=== PATIENT | female | born 1935 | race Caucasian/White ===

== ENCOUNTER 2017-01-30 10:24 | Inpatient (IN) ==
[2017-01-30] MEDS ORDERED: CARDIZEM IV ONE (10:27)
[2017-01-30] MEDS ORDERED: ASPIRIN PO STA (10:27)
[2017-01-30 10:48] LABS: MANUAL DIFF NEEDED? NO
[2017-01-30] MEDS ORDERED: NS 1,000 ML ONE (10:50)
--- NOTE | 2017-01-30 10:50 | Diag Imaging Result Doc PS360 ---
EXAM: CHEST-PORTABLE HISTORY: CP TECHNIQUE: AP upright portable at 1035 COMMENT: The appearance of the chest has not changed appreciably since the previous study of 11/03/2015. IMPRESSION: Stable chest. Electronically signed by Yony Beckham 01/30/2017 10:48 AM
[2017-01-30 10:55] LABS: BASO% 0.2 % (0.0-0.8); EOS# 0.12 X1000 (0.0-0.7); EOS% 1.1 % (0.0-10.0); HEMATOCRIT 36.1 % (37.0-47.0); HEMOGLOBIN 11.3 g/dL (12.0-16.0); IMM GRAN# 0.05 X1000 (0.0-0.04); IMM GRAN% 0.4 % (0.0-0.5); LYMPH# 1.01 X1000 (1.2-3.4); LYMPH% 8.9 % (20.5-51.1); MCH 28.9 PG (27-31); MCHC 31.3 g/dL (33-37); MCV 92.3 FL (81-99); MONO# 1.09 X1000 (0.11-0.59); MONO% 9.6 % (1.7-9.3); MPV 9.5 FL (7.4-10.4); NEUT% 79.8 % (42.2-75.2); PLT 244 X1000 (130-400); RBC 3.91 XMIL (4.2-5.4)
[2017-01-30] MEDS ORDERED: NS 500 ML IV ONE ×2 (11:01→11:37)
[2017-01-30 11:02] LABS: INR 1.01; PROTIME 10.6 Seconds (9.2-11.7); PTT 28.5 Seconds (22.0-36.0)
--- NOTE | 2017-01-30 11:22 | PROVIDER DOCUMENTATION ---
This chart was entered by Cristin Burnette Scribe, acting as scribe for Georgina Hutchinson MD. HPI-Chest Pain - General Chief Complaint: Chest Pain Stated Complaint: CHEST PAIN Time Seen by Provider: 01/30/17 10:25 Source: patient, EMS Allergies/Adverse Reactions: Patient Allergies Allergy/AdvReac Type Severity Reaction Status Date / Time morphine Allergy Intermediate HALLUCINATI Verified 04/29/15 21:46 ONS Home Medications: Home Medication List Medication Instructions Recorded Confirmed Last Taken Type Citalopram [Celexa] 20 mg PO QAM 09/27/12 10/27/15 10/27/15 History Pantoprazole [Protonix] 40 mg PO DAILY@0700 #0 tablet 08/31/14 10/27/15 Rx Aspirin 325 mg PO QAM #30 tablet 01/14/15 10/27/15 10/27/15 Rx Levothyroxine [Synthroid] 100 microgm PO DAILY #0 tablet 01/14/15 10/27/1510/27 Rx Clopidogrel [Plavix] 75 mg PO DAILY #30 tablet 02/22/15 10/27/15 10/27/15 Rx Lorazepam [Ativan] 1 mg PO QHS 04/29/15 10/27/15 10/26/15 History Hydrocodone/APAP 7.5 mg/325 mg 7.5 mg PO Q6H 10/27/15 10/27/15 10/26/15 12:00 History [[place]-7.5] Metoclopramide [Reglan] 10 mg PO BID #60 tablet 11/03/15 Unknown Rx - History of Present Illness-CP Nature of Presenting Problem: 81 year old female presents to the ER via EMS after falling in her home. Pt states her heart has been racing for 5 days with no history of cardiac issues. Pt states she started having chest pain as she was walking back to wheelchair and feel. 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 Onset/Duration: 5 days ago Timing: still present Associated Symptoms: reports: fatigue. denies: abdominal pain, back pain, nausea, shortness of breath, syncope, vomiting Aspirin Treatment Today: provided by ED Similar Symptoms Previously?: No Recently Seen Here or By Another Healthcare Provider: No Review of Systems - Adult - REVIEW OF SYSTEMS - ADULT Constitutional: denies: chills, fever Eyes: reports: no symptoms reported Ears, Nose, Mouth & Throat: reports: no symptoms reported Cardiovascular: reports: chest pain. denies: edema Respiratory: reports: no symptoms reported Gastrointestinal: reports: no symptoms reported Genitourinary: reports: no symptoms reported Musculoskeletal: reports: muscle weakness (right sided weakness due to stroke) Integumentary: reports: no symptoms reported Neurological: reports: no symptoms reported Psychiatric: reports: no symptoms reported Endocrine: reports: no symptoms reported Hematologic/Lymphatic: reports: no symptoms reported Allergic/Immunologic: reports: no symptoms reported All Other Systems: Reviewed and Negative Past History - Adult - PAST MEDICAL HISTORY-ADULT Review of Records: reports: Nursing Assessment Review, Medications Reviewed Cardiovascular: reports: HTN Gastrointestinal: reports: GERD, obstruction Endocrine/Immune: reports: thyroid disorder - PRIOR SURGERIES/PROCEDURES Surgical/Procedure History: reports: cholecystectomy, hysterectomy, hernia repair, joint replacement - PRIOR HOSPITALIZATIONS Prior Hospitalizations: reports: for other non-related - IMMUNIZATION STATUS Childhood Immunizations: See Nurse Assessment Flu Vaccine: See Nurse Assessment - FAMILY HISTORY Family History: reviewed, not pertinent Physical Exam-General - CONSTITUTIONAL General Appearance: alert, no apparent distress - EYES Eyes: PERRL/EOMI, pink conjunctivae - HEAD, EARS, NOSE, MOUTH & THROAT HENMT: normocephalic/atraumatic, moist mucous membranes - NECK Neck: full range of motion, normal inspection - RESPIRATORY Respiratory: lungs clear, normal breath sounds - CARDIOVASCULAR Cardiovascular: tachycardia - MUSCULOSKELETAL Back Exam: no CVA tenderness, no vertebral tenderness Extremity: normal range of motion, normal inspection - SKIN Integumentary: normal color, warm/dry - NEUROLOGIC Neurologic: grossly normal, no motor/sensory deficits - PSYCHIATRIC Psych/Mental Status: normal mood/affect, normal thought content, normal thought process, oriented x 3 Progress - PLAN OF CARE/RESULTS Progress/Plan/Lab Results: Vital Signs - 8 hr 01/30/17 10:20 01/30/17 10:47 01/30/17 10:50 Temperature 98.2 F Pulse Rate 148 H 145 H 116 H Respiratory Rate 24 21 20 Blood Pressure 151/129 134/94 79/66 O2 Sat by Pulse Oximetry 94 L 96 96 01/30/17 10:55 01/30/17 11:03 01/30/17 11:30 Temperature Pulse Rate 115 H 109 H 120 H Respiratory Rate 24 21 21 Blood Pressure 101/60 115/77 104/83 O2 Sat by Pulse Oximetry 95 94 L 95 Laboratory Results - last 24 hr 01/30/17 01/30/17 01/30/17 10:39 10:39 10:39 WBC 11.37 H RBC 3.91 L Hgb 11.3 L Hct 36.1 L MCV 92.3 MCH 28.9 MCHC 31.3 L RDW Std Deviation 13.8 Plt Count 244 MPV 9.5 Immature Gran % (Auto) 0.4 Neut % (Auto) 79.8 H Lymph % (Auto) 8.9 L [place] % (Auto) 9.6 H Eos % (Auto) 1.1 Baso % (Auto) 0.2 Immature Gran # (Auto) 0.05 H Neut # (Auto) 9.08 H Lymph # (Auto) 1.01 L [place] # (Auto) 1.09 H Eos # (Auto) 0.12 Baso # (Auto) 0.02 PT INR PTT (Actin FS) D-Dimer 1.83 H Sodium 141 Potassium 4.2 Chloride 103 Carbon Dioxide 23 L Anion Gap 15 BUN 28 H Creatinine 1.1 H Estimated GFR/1.73 m2 48 BUN/Creatinine Ratio 25 Glucose 125 H Calculated Osmolality 288 Calcium 9.0 Magnesium 1.4 L Total Bilirubin 0.53 AST 13 ALT 6 L Alkaline Phosphatase 59 Creatine Kinase 33 Troponin T Fns-[id number]-[id number] Pept Total Protein 6.5 Albumin 3.5 Globulin 3.0 Albumin/Globulin Ratio 1.2 01/30/17 01/30/17 01/30/17 10:39 10:39 10:39 WBC RBC Hgb Hct MCV MCH MCHC RDW Std Deviation Plt Count MPV Immature Gran % (Auto) Neut % (Auto) Lymph % (Auto) [place] % (Auto) Eos % (Auto) Baso % (Auto) Immature Gran # (Auto) Neut # (Auto) Lymph # (Auto) [place] # (Auto) Eos # (Auto) Baso # (Auto) PT 10.6 INR 1.01 PTT (Actin FS) 28.5 D-Dimer Sodium Potassium Chloride Carbon Dioxide Anion Gap BUN Creatinine Estimated GFR/1.73 m2 BUN/Creatinine Ratio Glucose Calculated Osmolality Calcium Magnesium Total Bilirubin AST ALT Alkaline Phosphatase Creatine Kinase Troponin T < 0.010 Dpm-R-Bressmrpiwb Pept 2255 H Total Protein Albumin Globulin Albumin/Globulin Ratio Orders Category Date Time Status Cardiac Monitoring DIRECTED Care 01/30/17 10:27 Active Saline Loc NOW Care 01/30/17 10:27 Active CHEST-PORTABLE [RAD] Stat Exams 01/30/17 10:27 Completed HEAD/C-SPINE W/O CONTRAST [CT] Stat Exams 01/30/17 10:53 Completed CBC WITH ELECTRONIC DIFF [HEME] Stat Lab 01/30/17 10:39 Completed CK PROFILE [SP CHEM] Stat Lab 01/30/17 10:39 Completed COMPREHENSIVE METABOLIC PANEL [CHEM] Stat Lab 01/30/17 10:39 Completed D-DIMER [CHEM] Stat Lab 01/30/17 10:39 Completed MAGNESIUM [CHEM] Stat Lab 01/30/17 10:39 Completed PRO B-NATRIURETIC PEPTIDE Stat Lab 01/30/17 10:39 Completed PROTIME WITH INR [COAG] Stat Lab 01/30/17 10:39 Completed PTT [COAG] Stat Lab 01/30/17 10:39 Completed TROPONIN T Stat Lab 01/30/17 10:39 Completed UA NIMS W/REFLEX CULT [URINALYSIS] Stat Lab 01/30/17 10:43 Uncollected 0.9% Sodium Chloride Inj [Ns] 500 ml Med 01/30/17 10:50 Discontinued .ROUTE As Directed 0.9% Sodium Chloride Inj [Ns] 500 ml Med 01/30/17 11:37 Active IV 250 mls/hr 0.9% Sodium Chloride Inj [Ns] 500 ml Med 01/30/17 11:01 Discontinued IV 999 mls/hr Aspirin Med 01/30/17 10:27 Discontinued 325 mg PO STAT STA Diltiazem 100 mg/Ns [Cardizem 100 mg/Ns] Med 01/30/17 11:37 Active 100 mg in 100 ml IV Per Protocol Diltiazem [Cardizem] Med 01/30/17 10:27 Discontinued 20 mg IV NOW ONE Hydrocodone/APAP 7.5 mg/325 mg [[place]-7.5] Med 01/30/17 12:10 Discontinued 1 each .ROUTE .STK-MED ONE Hydrocodone/APAP 7.5 mg/325 mg [[place]-7.5] Med 01/30/17 12:13 Discontinued 1 each PO NOW ONE EKG [EKG] Stat Ther 01/30/17 10:27 Ordered EKG [EKG] Stat Ther 01/30/17 11:20 Ordered Result Diagrams: 01/30/17 10:39 01/30/17 10:39 - EKG 1 Time of EKG reading by physician:: 10:24 EKG Read and Signed by:: Georgina Hutchinson EKG Interpretation (*Must complete 3 of following elements*): Abnormal Rate: 148 Rhythm: supraventricular tachycardia ST Wave: depressed - CONSULTS/PCP/HOSPITALIST Notification Time Discussed: 12:23 Reason/Comments: Admit to Dr. Jeong Consult Disposition: Will see in ED, Admit Departure - Departure Time of Disposition Decision: 12:23 DIAGNOSIS: Atrial fibrillation with RVR, Chest pain Disposition: ADMITTED INPATIENT 09 Certified Medical Emergency: Emergent Condition: Stable Referrals and Follow-Ups: Jozef Simon MD [Primary Care Provider] - - Critical Care Note This patient required my direct & personal management of CC.: No This chart was documented by the indicated scribe, (Cristin Burnette, Scribe) and accurately reflects the services I performed and decisions made by me, Georgina Hutchinson MD, as attested by the provider's signature.
[2017-01-30 11:35] LABS: ALBUMIN 3.5 g/dL (3.5-5.0); MAGNESIUM 1.4 mg/dL (1.5-2.7); POTASSIUM 4.2 mmol/L (3.5-5.1); TOTAL BILIRUBIN 0.53 mg/dL (0.20-1.00); TOTAL PROTEIN 6.5 g/dL (6.3-8.3)
[2017-01-30] MEDS ORDERED: CARDIZEM 100 MG/NS 100 MG/100 ML IVPB IV SCH (11:38)
--- NOTE | 2017-01-30 11:39 | Diag Imaging Result Doc PS360 ---
EXAM: HEAD/C-SPINE W/O CONTRAST HISTORY: Fall TECHNIQUE: CT of the head without contrast; CT of the cervical spine without contrast COMMENT: There is patchy lucency throughout the white matter both hemispheres. There is a small lacunae in the right caudate nucleus and another at the area of the genuine of the internal capsule on the left. No evidence of mass effect bleed or abnormal extra-axial fluid collection is present. Compared to the previous study of 01/11/2015 there has been no significant change. The visualized paranasal sinuses are clear. There are no acute bony abnormalities. CT of the cervical spine: There are extensive vascular calcifications particularly in the right carotid bulb and the left vertebral artery. The facets are aligned. There is no evidence of fracture or subluxation. There is disc space narrowing and osteophyte formation at C4-5 and five six. IMPRESSION: Chronic ischemic changes in the brain without definite evidence of acute disease. Degenerative disc disease. No evidence of acute fracture or subluxation in the cervical spine. Electronically signed by Yony Beckham 01/30/2017 11:36 AM
[2017-01-30] MEDS: CARDIZEM 100 MG/NS 100 MG/100 ML IVPB IV SCH ×2 (11:55→21:53)
[2017-01-30] MEDS ORDERED: NORCO-7.5 ONE (12:10)
[2017-01-30] MEDS ORDERED: NORCO-7.5 PO ONE (12:13)
--- NOTE | 2017-01-30 12:22 | ED EKG INTERP ---
This chart was entered by Cristin Burnette Scribe, acting as scribe for Georgina Hutchinson MD. EKG Interpretation - EKG Time of EKG reading by physician:: 12:05 EKG Read and Signed by:: Georgina Hutchinson EKG Interpretation (*Must complete 3 of following elements*): Abnormal Rate: 116 Rhythm: atrial fibrillation with rapid ventricular response Comments: ST & T wave abnormality, consider anterior ischemia, Abnormal ECG This chart was documented by the indicated scribe, (Cristin Burnette Scribe) and accurately reflects the services I performed and decisions made by me, Georgina Hutchinson MD, as attested by the provider's signature.
[2017-01-30] MEDS ORDERED: MAGNESIUM SULFATE 2 GM/S.W.I. 2 GM/50 ML IVPB IV ONE (15:11)
[2017-01-30] MEDS ORDERED: LANOXIN IV ONE (15:11)
[2017-01-30] MEDS ORDERED: TYLENOL PO PRN (15:11)
[2017-01-30] MEDS ORDERED: ZOFRAN IV PRN (15:11)
[2017-01-30] MEDS: NORCO-7.5 PO SCH ×2 (15:51→21:52)
--- NOTE | 2017-01-30 20:29 | HISTORY AND PHYSICAL ---
HISTORY OF PRESENT ILLNESS: Ms. Stefanie Haskins is an 81-year-old lady who is followed as an outpatient by Dr. Jozef Simon. 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 She presented to the ER complaining of palpitations. She reported that her heart has been racing and skipping for 5 days. On arrival to the ER, she was noted to be in atrial fibrillation with RVR, with her heart rate in the 150s and 160s. She was initially given a bolus of Cardizem, and was later placed on a Cardizem drip. She has no previous history of atrial fibrillation. Upon further questioning, she has been with complaint of chest tightness and pressure, with radiation of pain to her neck and arm. Her episodes of chest pain have occurred both with exertion and at rest. She also has been with complaint of increasing peripheral edema and increasing shortness of breath with activities of daily living that resolved with rest. She sleeps on 2 pillows, but does not wake up at night short of breath. PAST MEDICAL HISTORY: Degenerative arthritis, depression, post ablative hypothyroidism, COPD, infrarenal aortic aneurysm. PAST SURGICAL HISTORY: Bilateral hip replacement, bilateral knee replacement, hysterectomy, cholecystectomy, exploratory laparotomy for lysis of adhesions following a small bowel obstruction. ALLERGIES: No known drug allergies. FAMILY HISTORY: Noncontributory. SOCIAL HISTORY: She is a former smoker. She does not consume alcoholic beverages. REVIEW OF SYSTEMS: Constitutional: She denies any recent weight gain or weight loss. HEENT: She wears glasses. Cardiovascular: See HPI. Pulmonary: See HPI. Gastrointestinal: No reflux, dysphagia, melena, hematochezia, change in bowel habits, or rectal bleeding. Endocrine: No polyuria, no polydipsia. No cold or heat intolerance. Skin: No easy bruisability. Genitourinary: No leakage of urine with coughing or laughing. Neurologic: No migraines or seizures. Psychiatric: History of depression. PHYSICAL EXAMINATION: GENERAL: This is a well-developed, well-nourished, 81-year-old lady in no apparent distress. VITAL SIGNS: Pulse 115 and irregular, respiratory rate 20, BP 100/62. O2 saturation 98% on 2 L of O2. HEENT: Fundi with sharp discs and vessels. Pupils equal, round, reactive to light. Extraocular eye movements intact. TMs without bullae. NECK: Supple. No masses, JVD, or bruits. CARDIOVASCULAR: Irregularly irregular. LUNGS: Faint crackles in the bases bilaterally. ABDOMEN: Soft, nontender, with active bowel sounds. BREASTS/GYNECOLOGIC/RECTAL: Deferred. EXTREMITIES: Trace pitting edema. NEUROLOGIC: Nonfocal. LABORATORY STUDIES: Various laboratory studies were obtained. A CBC demonstrated a white count of 11.3, hemoglobin 11.3, hematocrit 36.1, and a platelet count of 244,000. Her PT was 10.6, with an INR of 1. Her D-dimer was 1.83. Electrolytes demonstrated the following: Sodium 141, potassium 4.2, BUN 28, creatinine 1.1, glucose 125, magnesium 1.4. Her proBNP was 22.55. ASSESSMENT AND PLAN: 1. Unstable angina. She has no known previous history of ischemic heart disease. I will continue aspirin 81 mg daily, Lovenox 1 mg/kg subcutaneously b.i.d.,, and will rule her out for myocardial ischemia by serial enzymes. 2. New-onset atrial fibrillation with rapid ventricular rate. I will admit the patient to the intensive care unit, where I will begin a Cardizem drip and titrate to heart rate less than 100. We will arrange for a 2D echocardiogram with color Doppler and spectral flow Doppler to rule out valvular abnormalities. I will check serial cardiac enzymes to rule out an ischemic event which prompted the atrial fibrillation. She is also on thyroid medicines, and we will check a TSH and free T4 to make sure that she is not thyrotoxic. 3. Acute congestive heart failure. I am going to place her on a salt and fluid-restricted diet. We will diurese her with IV Lasix. We will follow strict I's and O's. I will recheck a portable chest x-ray in the morning. 4. Post ablative hypothyroidism. I will check a TSH and free T4, and adjust the dosage of levothyroxine as needed. 5. Hypomagnesemia. I will give her magnesium 4 g IV over 2 hours. 6. Elevated D-dimer. She was tachypneic and tachycardic. I will check a CT pulmonary angiogram. Because of her clinical presentation and comorbid conditions, I believe that admission to the hospital is both reasonable and necessary. Attempting to treat her as an outpatient increases the likelihood of an adverse outcome. I believe that she will be in the hospital for at least 2 midnights, and I will therefore place her in inpatient status. cc: MD Jozef Wilson MD
[2017-01-30] MEDS: LOVENOX SUBQ SCH (21:51)
[2017-01-30] MEDS: DESYREL PO PRN (21:52)
[2017-01-30] MEDS: REGLAN PO SCH (21:52)
[2017-01-30] MEDS: ATIVAN PO SCH (21:52)
--- NOTE | 2017-01-31 06:01 | EKG Report ---
Test Performed on : 01/30/2017 10:24:30 AM Test Reason : Chest Pain Blood Pressure : / mmHG Vent. Rate : 148 BPM Atrial Rate : 153 BPM P-R Int : 000 ms QRS Dur : 072 ms QT Int : 282 ms P-R-T Axes : 000 001 076 degrees QTc Int : [address] depression, consider subendocardial injury Nonspecific T wave abnormality Abnormal ECG No previous ECGs available Unconfirmed Result
--- NOTE | 2017-01-31 06:02 | EKG Report ---
Test Performed on : 01/30/2017 12:05:04 PM Test Reason : CP/SVT Blood Pressure : / mmHG Vent. Rate : 116 BPM Atrial Rate : 116 BPM P-R Int : 000 ms QRS Dur : 074 ms QT Int : 318 ms P-R-T Axes : 000 -18 -07 degrees QTc Int : 442 ms Atrial fibrillation. with rapid ventricular response. ST \T\ T wave abnormality, consider anterior ischemia Abnormal ECG When compared with ECG of 19-FEB-2015 13:33, Atrial fibrillation. has replaced Ectopic atrial rhythm. Inverted T waves have replaced nonspecific T wave abnormality in Inferior leads T wave inversion now evident in Anterior leads Unconfirmed Result
[2017-01-31] MEDS: NORCO-7.5 PO SCH ×4 (06:23→22:31)
[2017-01-31] MEDS: PROTONIX PO SCH (06:24)
[2017-01-31] MEDS: SYNTHROID PO SCH (06:24)
[2017-01-31 06:33] LABS: CALCIUM 8.3 mg/dL (8.8-10.2); POTASSIUM 4.3 mmol/L (3.5-5.1)
[2017-01-31] MEDS: REGLAN PO SCH ×2 (09:02→22:31)
[2017-01-31] MEDS: CELEXA PO SCH (09:02)
[2017-01-31] MEDS: ASPIRIN PO SCH (09:02)
[2017-01-31] MEDS: LOVENOX SUBQ SCH ×2 (09:03→22:30)
--- NOTE | 2017-01-31 10:03 | PROGRESS NOTE ---
DATE: 01/31/2017 SUBJECTIVE: She was admitted yesterday per Dr. Jeong as my patient. 81-year-old with multiple medical problems including post ablated hypothyroidism following radioactive iodine ablation for Graves' disease, severe degenerative arthritis, gastroparesis, gastroesophageal reflux and major depression. She presented to the ER with palpitations the heart had been skipping for about 5 days. She started having some chest pain and then she had a fall where she fell on her knees and laid there for about an hour. She could not get up. She has a history of atrial fibrillation with rapid ventricular rate. Rate 150s to 160s. Initially, gave her a bolus of Cardizem in the ER and placed her on a Cardizem drip. Previous history of atrial fibrillation. It may be not documented, but I think she has had previous atrial fibrillation. She had chest pressure, and she has a pleuritic component. It hurts to breathe. Feels short of breath. Admitted to the hospital with IMPRESSION: 1. Questionable unstable angina. No known history of ischemic heart disease before. She is on aspirin and gave her Lovenox. Cardiology is seeing. 2. New onset atrial fibrillation with rapid ventricular rate. I think she has had this before, but she has not had it documented in a while. She is on Cardizem drip. 3. Acute congestive heart failure. She is on a salt and fluid restricted diet and diuresing with some Lasix. 4. Post ablated hypothyroidism. TSH and T4 will be followed. 5. Hypomagnesemia. 6. Elevated D-dimer. She had a CT of her head. Chronic ischemic changes of the brain without definite evidence of acute disease. Degenerative disk disease. No evidence of fracture or subluxation. Electrogram done yesterday: Atrial fibrillation, rapid ventricular rate. Chest x-ray from 01/30/2017, yesterday, stable chest. Appearance of chest has not changed since the previous study done on 11/03/2015. Reviewed her orders. She got 1. Digoxin 250 mcg once yesterday. 2. Aspirin 325 mg a day. 3. Desyrel 50 mg at bedtime. 4. Protonix 40 mg p.o. daily. 5. Reglan 10 mg b.i.d. 6. Lorazepam 1 mg at bedtime. 7. Synthroid 100 mcg daily. 8. Hydrocodone 7.5 one q.6 hours p.r.n. 9. Lovenox 70 mg subcutaneously b.i.d. 10. Cardizem drip. 11. Celexa 20 mg daily q.a.m. We will ask cardiology to follow to see if we can get her up and start walking when appropriate. cc: Jozef Simon MD
[2017-01-31] MEDS ORDERED: NS 400 ML IV ONE (11:40)
[2017-01-31] MEDS: NS 1,000 ML IV SCH ×2 (12:18→22:41)
--- NOTE | 2017-01-31 17:51 | ECHO REPORT ---
ORDER DATE: 01/31/2017 ECHOCARDIOGRAPHIC MEASUREMENTS: 1. Interventricular septum 1.1. 2. Left ventricular posterior wall 1.1. 3. Diastolic diameter 4.7. 4. Left atrium 3.9. 5. Aorta 3.5. SUMMARY OF 2-DIMENSIONAL IMAGIN. Normal left ventricular cavity size. Estimated ejection fraction of 60%. 2. Aortic valve leaflets were trileaflet, mildly sclerosed, opening normally. Pulmonic valve was normal. Mitral valve was normal. Tricuspid valve was normal. 3. Peak velocity across the aortic valve less than 2 m/sec. There is no aortic stenosis or regurgitation. There is mild mitral regurgitation. There is left atrial enlargement. There is mild to moderate tricuspid regurgitation. Peak velocity across the tricuspid valve was 3 m/sec. Pulmonary artery systolic pressure of 50 mmHg. There is mild mitral regurgitation. Chiari network noted in the right atrium, normal variant. cc: MD Adis Viera MD Allen J. Schmidt, MD
--- NOTE | 2017-01-31 18:13 | CONSULTATION ---
DATE OF CONSULTATION: 01/31/2017 IMPRESSION: 1. Atypical atrial flutter with rapid ventricular rate now resolved. Patient unaware of her arrhythmia and denies palpitations. 2. Atypical chest pain which is pleuritic in nature and aggravated by shifting in bed when she is lying down. The latter would seem to suggest musculoskeletal etiology more likely although pericardial disease not excluded. Pleurisy not excluded as well. Symptoms atypical for myocardial ischemia. 3. Chronic venous insufficiency. This has been aggravated by stasis. Patient is status post previous vein stripping procedure in the past and also tends to remain seated throughout the day as she is nonambulatory. 4. Hypertension. 5. Postablation hypothyroidism. 6. Degenerative arthritis. 7. Infrarenal aortic aneurysm. RECOMMENDATIONS: 1. Given the patient back in sinus rhythm, discontinue intravenous Cardizem. 2. Add beta-iglma as tolerated. 3. Echocardiography/Doppler study. 4. Discontinue diuretic therapy for now. 5. May consider myocardial imaging as patient clinically improves. 6. Conservative overall cardiovascular plans in light of patient's age and limited functional status. HISTORY: This 81-year-old white female with past history of hypertension, hypothyroidism post thyroid ablation and venous insufficiency was admitted through the emergency room. She relates that she fell on the day of admission. She is nonambulatory and was transitioning from her bed to her wheelchair. She fell. She had been having pain for the last 4 or 5 days in her chest. She describes a central chest pain which is sharp in character and worse with deep breath. She volunteers she cannot take a deep breath because of this. Discomfort does not seem positional other than when she is lying flat in bed discomfort is aggravated by attempting to roll from one side to the other. She does not have palpitations. She was found to have a irregular supraventricular tachycardia. On review this appears to be atypical atrial flutter with rapid ventricular rate. She has been treated with intravenous Cardizem. She has converted back to sinus rhythm spontaneously. PAST MEDICAL HISTORY: 1. Hypertension. 2. Degenerative arthritis. 3. Depression. 4. Postablative hypothyroidism. 5. Chronic obstructive pulmonary disease. 6. Infrarenal aortic aneurysm. 7. Status post left hip replacement following fracture. 8. Status post right hip replacement following fracture. 9. Status post right knee replacement. 10. Status post left knee replacement. 11. Hysterectomy. 12. Cholecystectomy. 13. Exploratory laparotomy for lysis of adhesions in the setting of small bowel obstruction. 14. Status post appendectomy. ALLERGIES: She has no known drug allergies. MEDICATIONS: Prior to admission as listed. It is noteworthy that she had recently been started on diuretic therapy for edema. SOCIAL HISTORY: She is a former smoker. She does not drink alcoholic beverage. FAMILY HISTORY: Negative for premature coronary disease. REVIEW OF SYSTEMS: Pulmonary: Negative. Gastrointestinal: Negative. Constitutional: Negative. Remainder of review of systems negative with 14 total systems reviewed. PHYSICAL EXAMINATION: General: This is a elderly white female in no distress. Vital Signs: Blood pressure 94/51, heart rate 83 and regular with ECG monitor showing sinus rhythm. HEENT Exam: Atraumatic, normocephalic. Extraocular movements intact. Mucous membranes are dry. Neck: Supple without jugular venous distention. There are no carotid bruits. Chest: Clear to auscultation. Cardiac: Reveals a regular rate and rhythm without appreciable murmur or gallop. Abdomen: Soft, nontender. Bowel sounds are normal. Extremities: Without edema. Neurologic Exam: Reveals her to be alert, fully oriented. Speech is fluent. She moves all 4 extremities equally well. PERTINENT DATA: Twelve-lead EKG obtained on admission demonstrates atypical atrial flutter with rapid ventricular rate and nonspecific ST and T-wave abnormality. ECG monitor currently shows sinus rhythm. Echocardiography is pending. Lab data includes BUN 29, creatinine 1.2, suspicious for intravascular volume depletion/prerenal azotemia. Initial troponin less than 0.01. TSH 0.86. cc: MD Jozef Rubio MD
[2017-01-31] MEDS: NICODERM PATCH TD SCH (22:30)
[2017-01-31] MEDS: ATIVAN PO SCH (22:31)
[2017-01-31] MEDS: DESYREL PO PRN (22:31)
[2017-02-01] MEDS: NORCO-7.5 PO SCH ×4 (03:40→21:59)
[2017-02-01] MEDS: SYNTHROID PO SCH (06:09)
[2017-02-01] MEDS: PROTONIX PO SCH (06:09)
[2017-02-01] MEDS: NICODERM PATCH TD SCH (08:06)
[2017-02-01] MEDS: REGLAN PO SCH ×2 (08:06→22:00)
[2017-02-01] MEDS: ASPIRIN PO SCH (08:06)
[2017-02-01] MEDS: LOVENOX SUBQ SCH ×2 (08:06→21:59)
[2017-02-01] MEDS: CELEXA PO SCH (08:06)
--- NOTE | 2017-02-01 09:08 | PROGRESS NOTE ---
DATE: 02/01/2017 SUBJECTIVE: Ms. Haskins is feeling better. She was sleeping, easy to arouse. No chest pain at the present time. OBJECTIVE: Blood pressure has improved. Temperature 97.5 degrees, pulse 74, respirations 14, blood pressure 117/56. CVP less than 6 cm. Lungs are clear in all lung marino. Cardiovascular: Regular rhythm and rate without murmur or S3. Good urine output, over 4 L. LABORATORY DATA: White count 11,370. Hematocrit 36, platelet count 244,000. Chemistry: Sodium 137, potassium 4.3, chloride 102, bicarb 25. BUN 29, creatinine 1.2. ASSESSMENT AND PLAN: 1. Chest pain. Questionable of unstable angina. This is better. Cardiology following. 2. Atrial fibrillation with rapid ventricular rate. Continue rate control. 3. Status post hypothyroidism. She appears to be euthyroid at this time. 4. Hypomagnesemia. Review of her orders. I do not see any changes at this time. We will see if we can move her to the regular floor. cc: Jozef Simon MD
--- NOTE | 2017-02-01 13:03 | PROGRESS NOTE ---
DATE: 02/01/2017 SUBJECTIVE: Patient relates feeling better. She adds that she can now sit up without having pain. She describes pain that seems to be aggravated by sitting up as well as pleuritic in nature. She denies shortness of breath. OBJECTIVE: Vital Signs: Blood pressure 115/79, heart rate 82 and regular with ECG monitor showing sinus rhythm. There is no significant jugular venous distention. Chest: Clear to auscultation. Cardiac Exam: Reveals a regular rate and rhythm without appreciable murmur or gallop. There is no evidence of peripheral edema. LABORATORY DATA: Remarkable for D-dimer 1.83. Troponin T less than 0.01. Echocardiography reports normal left ventricular systolic function, moderate tricuspid regurgitation and moderate pulmonary hypertension. Description of right ventricle not included in report. IMPRESSION: 1. Chest pain, atypical for myocardial ischemia with pleuritic features. D-dimer abnormal. 2. Atrial tachyarrhythmia which appeared to be atypical atrial flutter now resolved. 3. Hypertension. 4. Chronic venous insufficiency. RECOMMENDATIONS: 1. Go ahead and perform chest CT scan/CT angiography to rule out pulmonary embolus. 2. Initiate beta gilma. 3. If CT angio is negative for pulmonary most, will pursue Lexiscan sestamibi study to screen for coronary disease. cc: MD Jozef Rubio MD
--- NOTE | 2017-02-01 14:34 | Diag Imaging Result Doc PS360 ---
EXAM: ANGIOGRAM/PULMONARY ARTERIES INDICATION: Rule out pulmonary embolus COMPARISON: None. FINDINGS: There is no evidence of pulmonary embolism. There is extremely severe thoracic aortic atherosclerotic disease with calcifications and ulcerated soft plaques throughout the aorta. There is an aneurysm involving the aorta near the diaphragmatic hiatus measuring up to 4.2 cm in diameter. 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 There is cardiomegaly. There are shotty borderline to mildly prominent mediastinal lymph nodes that are nonspecific. There are few calcified mediastinal lymph nodes indicating prior granulomatous disease. There are bilateral small pleural effusions and bibasilar atelectasis. There is a calcified granuloma at the left lung apex. IMPRESSION: 1.Bilateral small pleural effusions and bibasilar atelectasis. 2.Cardiomegaly. 3.Nonspecific shotty mildly prominent mediastinal lymph nodes. 4.Extremely severe atherosclerotic disease involving the aorta and its major branches with aneurysmal dilation near the diaphragmatic hiatus. 5.No evidence of pulmonary embolism. Electronically signed by Robert Doshi 02/01/2017 2:32 PM
[2017-02-01] MEDS: LOPRESSOR PO SCH ×2 (15:17→21:59)
[2017-02-01] MEDS: NS 1,000 ML IV SCH ×2 (15:17→23:01)
[2017-02-01] MEDS ORDERED: LOPRESSOR PO SCH (21:00)
[2017-02-01] MEDS: ATIVAN PO SCH (21:59)
[2017-02-01] MEDS: DESYREL PO PRN (22:00)
[2017-02-02] MEDS: NORCO-7.5 PO SCH ×4 (03:00→20:43)
[2017-02-02] MEDS: LOPRESSOR PO SCH ×2 (04:33→14:23)
[2017-02-02] MEDS: PROTONIX PO SCH (06:39)
[2017-02-02] MEDS: SYNTHROID PO SCH (06:39)
--- NOTE | 2017-02-02 07:29 | PROGRESS NOTE ---
DATE: 02/02/2017 SUBJECTIVE: She says she feels a lot better. She still having the chest pain when she takes a deep breath, but is stronger and able to eat. She did get up to her wheelchair yesterday and said it felt good. OBJECTIVE: Vital Signs: Temp 98.6 degrees, pulse 74, respirations 15, blood pressure 127/58. CVP less than 6 cm. Lungs: Clear in all lung marino. Cardiovascular: Regular rhythm and rate without murmur or S3. : Good urine output of about 6 L. LAB AND DIAGNOSTIC DATA: Reviewed from the . Note she did have a pulmonary arteriogram done yesterday: Bilateral small pleural effusions, bibasilar atelectasis. Cardiomegaly. Nonspecific mildly prominent mediastinal lymph nodes. Extremely severe atherosclerotic heart disease involving the aorta and major branches with aneurysm. Dilatation near the diaphragmatic hiatus. No evidence of pulmonary embolism. The aortic aneurysm near the diaphragmatic hiatus is about 4.2 cm. ASSESSMENT AND PLAN: 1. Atypical atrial flutter with rapid ventricular rate which is resolved. She was unaware of an arrhythmia and denied palpitations. 2. Atypical chest pain pleuritic in nature aggravated by shifting in bed when she was lying down. This suggested musculoskeletal etiology. It was noted that she did have an aneurysm that is small 4.2 cm, but significant in that it was near the diaphragmatic hiatus. 3. Chronic venous insufficiency status post venous stripping procedure. 4. Hypertension. 5. Post ablation hypothyroidism. 6. Degenerative arthritis. 7. Infrarenal aortic aneurysm. She feels better. A beta gilma was added. They discontinued IV Cardizem to see if we can move her to the floor., Get her up and get her walking. Consider myocardial imaging again as patient clinically improves. Appreciate Cardiology's help. 8. Review of orders. I do not see any change. We will check basic metabolic, magnesium and CBC in the morning. cc: Jozef Simon MD
[2017-02-02] MEDS: CELEXA PO SCH (09:27)
[2017-02-02] MEDS: ASPIRIN PO SCH (09:27)
[2017-02-02] MEDS: NICODERM PATCH TD SCH (09:27)
[2017-02-02] MEDS: REGLAN PO SCH ×2 (09:27→20:44)
[2017-02-02] MEDS: NS 1,000 ML IV SCH (09:28)
--- NOTE | 2017-02-02 09:37 | PROGRESS NOTE ---
DATE: 02/02/2017 SUBJECTIVE: Patient relates feeling better. She still has some atypical chest pain when she takes deep breaths. OBJECTIVE: Vital Signs: Blood pressure 127/58, heart rate 74 and regular. ECG monitor presently shows sinus rhythm. She had some recurrent atrial fib versus atypical atrial flutter yesterday evening. Neck: There is no significant jugular venous distention. Chest: Clear to auscultation. Cardiac Exam: Reveals a regular rate and rhythm without appreciable murmur or gallop. There is no evidence of edema. Chest CT scan reports no evidence of pulmonary embolus. IMPRESSIONS: 1. Chest pain, atypical for myocardial ischemia. 2. Abnormal D-dimer. Chest CT negative for pulmonary embolus but did indicate atherosclerosis in aorta and branches off the aorta. 3. Recurrent atrial arrhythmias. Including atypical atrial flutter and some atrial fibrillation. She has a significant ALISON-VASc score consistent with significant thromboembolic risk. 4. Chronic venous insufficiency status post venous stripping procedure. 5. Hypertension. 6. Postablation hypothyroidism. RECOMMENDATIONS: 1. Follow through with Lexiscan sestamibi for risk stratification purposes, although her chest symptoms are atypical for myocardial ischemia. Given recurrent atrial arrhythmias and patient's significant ALISON-VASc score, would utilize anticoagulation as tolerated with Eliquis. 2. Continue beta gilma. May consider amiodarone if recurrent symptomatic atrial arrhythmias. cc: MD Jozef Rubio MD
[2017-02-02] MEDS: ELIQUIS PO SCH (20:44)
[2017-02-02] MEDS: ATIVAN PO SCH (20:44)
[2017-02-02 20:50] LABS: URINE CULTURE NEEDED? NO; URINE MICRO REVIEW NEEDED? NO; URINE SOURCE CLEAN CATCH
[2017-02-02 20:55] LABS: BILIRUBIN URINE NEGATIVE (NEGATIVE); BLOOD URINE NEGATIVE (NEGATIVE); COLOR YELLOW; GLUCOSE URINE NEGATIVE (NEGATIVE); LEUKOCYTES URINE NEGATIVE (NEGATIVE); NITRITE URINE NEGATIVE (NEGATIVE); PH URINE 5.5; PROTEIN URINE NEGATIVE (NEGATIVE); SP GRAVITY URINE 1.012; TURBIDITY URINE CLEAR (CLEAR); UR EPITHELIAL CELLS <10 /HPF (<10); URINE BACTERIA NEGATIVE /HPF; URINE RBC <10 /HPF (<10); URINE WBC <10 /HPF (<10); UROBILINOGEN URINE 2 mg/dL (NORMAL)
[2017-02-03] MEDS: NORCO-7.5 PO SCH ×4 (03:14→20:51)
[2017-02-03] MEDS: PROTONIX PO SCH ×2 (05:47→06:21)
[2017-02-03] MEDS: SYNTHROID PO SCH ×2 (05:47→06:20)
[2017-02-03 06:27] LABS: MANUAL DIFF NEEDED? NO
[2017-02-03 06:40] LABS: BASO% 0.4 % (0.0-0.8); EOS# 0.27 X1000 (0.0-0.7); EOS% 3.7 % (0.0-10.0); HEMATOCRIT 28.8 % (37.0-47.0); HEMOGLOBIN 8.9 g/dL (12.0-16.0); IMM GRAN# 0.02 X1000 (0.0-0.04); IMM GRAN% 0.3 % (0.0-0.5); LYMPH# 0.96 X1000 (1.2-3.4); LYMPH% 13.2 % (20.5-51.1); MCH 28.9 PG (27-31); MCHC 30.9 g/dL (33-37); MCV 93.5 FL (81-99); MONO# 0.74 X1000 (0.11-0.59); MONO% 10.1 % (1.7-9.3); MPV 9.3 FL (7.4-10.4); NEUT% 72.3 % (42.2-75.2); PLT 246 X1000 (130-400); RBC 3.08 XMIL (4.2-5.4)
[2017-02-03 06:50] LABS: CALCIUM 7.9 mg/dL (8.8-10.2); MAGNESIUM 1.5 mg/dL (1.5-2.7); POTASSIUM 4.5 mmol/L (3.5-5.1)
--- NOTE | 2017-02-03 09:02 | PROGRESS NOTE ---
DATE: 02/03/2017 SUBJECTIVE: Ms. Haskins is sleeping, resting comfortably, breathing comfortably, and feels better. OBJECTIVE: Vital Signs: Remains afebrile, temp 97.5 degrees, pulse 70, respirations 16, blood pressure 128/55, CVP less than 6 cm. Lungs: Clear in all lung marino. Cardiovascular: Regular rhythm and rate, without murmur or S3. Good urine output, 4.5 L. LABORATORY DATA: Blood work today: White count 7300, hematocrit is 28, platelet count of 248,000. Sodium 139, potassium 4.5, chloride 106, BUN 23, creatinine 0.9. ASSESSMENT AND PLAN: 1. Chest pain, atypical. I do not think this is myocardial ischemia. 2. Abnormal D-dimer. CT negative for pulmonary embolus, but did indicate atherosclerosis in the branches of the aorta. 3. Recurrent atrial arrhythmias. She has some atypical atrial flutter and some atrial fibrillation. Her CHADS-VASc score is consistent with significant thromboembolic risk, but I think she is probably high risk for anticoagulation given her propensity for falls. 4. Chronic venous insufficiency, status post venous stripping procedure. 5. Hypertension. 6. Post ablation for hypothyroidism. I think she is improving and getting a little stronger. Continue physical therapy. She has got an infrarenal aortic aneurysm, which is about 4 cm. Aware. REVIEW OF ORDERS: She is on Eliquis 5 mg b.i.d., and I agree with that. We will watch and see how she does on that. She does have a high CHADS score. Aspirin 81 mg a day, Celexa 20 mg a day, hydrocodone 7.5 every 6 hours p.r.n., Synthroid 100 mcg a day, Ativan 1 mg at bedtime, Reglan 10 mg b.i.d., nicotine patch 21 mg a day, getting fluids of normal saline at 85 mL an hour, trazodone 50 mg at bedtime, and Protonix 40 mg daily. Physical therapy we want to continue. cc: Jozef Simon MD
--- NOTE | 2017-02-03 09:19 | PROGRESS NOTE ---
DATE: 02/03/2017 SUBJECTIVE: The patient relates only some chest discomfort if she takes a really deep breath. She has no other chest discomfort. She continues on supplemental oxygen per nasal cannula. She denies dyspnea. OBJECTIVE: Vital Signs: Blood pressure 128/55, heart rate 70 and regular. ECG monitor showing sinus rhythm. There is no significant jugular venous distention. Chest is clear to auscultation. Cardiac exam reveals a regular rate and rhythm without appreciable murmur or gallop. There is no evidence of peripheral edema. LABORATORY DATA: Remarkable for hematocrit of 28 with significant decrease since last value. IMPRESSION: 1. Atypical chest pain. No evidence of pulmonary embolus. Chest pain improving, and most likely noncardiac. 2. Recurrent atrial arrhythmias, including atypical atrial flutter and probably some atrial fibrillation. The patient has developed anemia while on anticoagulation. 3. Atherosclerosis of aorta and major branches of aorta on CT scan. 4. Chronic obstructive pulmonary disease likely. 5. Infrarenal aortic aneurysm. RECOMMENDATIONS: 1. Given the patient's overall age and functional status, as well as atypical nature of her chest symptoms, would pursue conservative course of management and forego stress myocardial fusion imaging, but rather medically manage her for possible coronary disease. Her chest pain is atypical. She developed anemia while on anticoagulation, and this would also tend to favor conservative course of management. 2. Discontinue Eliquis in light of development of anemia while on anticoagulation, and continue anti-platelet therapy pending further investigation of anemia. cc: MD Jozef Rubio MD
[2017-02-03] MEDS: ASPIRIN PO SCH (09:31)
[2017-02-03] MEDS: NICODERM PATCH TD SCH (09:31)
[2017-02-03] MEDS: ELIQUIS PO SCH ×2 (09:31→20:50)
[2017-02-03] MEDS: CELEXA PO SCH (09:32)
[2017-02-03] MEDS: REGLAN PO SCH ×2 (09:32→20:51)
[2017-02-03] MEDS: NS 1,000 ML IV SCH ×3 (13:39→14:02)
[2017-02-03] MEDS: ATIVAN PO SCH (20:51)
[2017-02-04] MEDS: NS 1,000 ML IV SCH ×3 (02:33→08:53)
[2017-02-04] MEDS: NORCO-7.5 PO SCH ×3 (03:16→15:48)
[2017-02-04] MEDS: PROTONIX PO SCH (06:12)
[2017-02-04] MEDS: SYNTHROID PO SCH (06:12)
[2017-02-04] MEDS: CELEXA PO SCH (08:53)
[2017-02-04] MEDS: NICODERM PATCH TD SCH (08:53)
[2017-02-04] MEDS: ASPIRIN PO SCH (08:54)
[2017-02-04] MEDS: REGLAN PO SCH (08:54)
[2017-02-04] MEDS: ELIQUIS PO SCH (08:54)
--- NOTE | 2017-02-04 13:13 | PROGRESS NOTE ---
DATE: 02/04/2017 SUBJECTIVE: Patient reports no chest discomfort or dyspnea at this point. OBJECTIVE: Vital Signs: Blood pressure 132/73, heart rate 71. Oxygen saturation 98%. There is no significant jugular venous distention. Chest is clear to auscultation. Cardiac exam reveals a regular rate and rhythm without appreciable murmur or gallop. There is no evidence of edema. IMPRESSION: 1. Chest pain, atypical. Evaluation for pulmonary embolus negative. Suspect probably not myocardial ischemia based on some atypical features and lack of objective data to indicate ongoing ischemia. 2. Atherosclerosis of branches of the aorta. 3. Recurrent atrial arrhythmias. She has some atypical atrial flutter and some atrial fibrillation. Although CHADS-VAS score suggested significant thromboembolic risk, she dropped her hematocrit while on anticoagulation therapy in the hospital and, at this point, it is more appropriately treated with anti-platelet therapy. 4. Chronic venous insufficiency. 5. Hypertension. RECOMMENDATIONS: 1. Continue current cardiovascular regimen unchanged with beta-gilma and anti-platelet therapy. 2. No further cardiovascular suggestions at this point. It would seem reasonable that she might be able to get out of the hospital soon. We will see further on an as needed basis. cc: MD Jozef Rubio MD
--- NOTE | 2017-02-04 14:38 | DISCHARGE SUMMARY ---
ADMISSION DATE: 01/30/2017 DISCHARGE DATE: 02/04/2017 HISTORY OF PRESENT ILLNESS: This is an 81 year old who is followed by me as an outpatient, history of multiple medical problems including postablative hypothyroidism following radioactive iodine ablation for Graves disease, severe degenerative arthritis, gastroparesis, gastroesophageal reflux disease, major depression. She presented to the emergency room with complaint of palpitations. She reported that her heart was racing, stopped and skipping, for about 5 days. On arrival to the ER, she was noted to be in atrial fibrillation with rapid ventricular rate, heart rate was in the 150s and 160s. She was initially given a bolus of Cardizem, was later placed on Cardizem drip. No previous history of atrial fibrillation. Upon further questioning, she has been complaining of chest tightness, pressure and radiation in her neck and arm. Episodes of chest pain have occurred both with exertion and at rest. She has been complaining of increased peripheral edema, increased shortness of breath with activities of normal daily living. PAST MEDICAL HISTORY: 1. Degenerative arthritis. 2. Depression. 3. Postablative hypothyroidism. 4. COPD. 5. Intrarenal aortic aneurysm, following, which has remained at about 4 cm. PAST SURGICAL HISTORY: Bilateral hip replacement, bilateral knee replacement, hysterectomy, cholecystectomy, exploratory laparotomy for lysis of adhesions following small bowel obstruction. ALLERGIES: No known drug allergies. HOSPITAL COURSE: She was originally moved to the unit. Her respiratory status and heart rate improved. We did an echocardiogram on 01/31/2017 which showed normal left ventricular cavity, ejection fraction of 60%. Aortic valve leaflets were trileaflet, mildly sclerosed, opening normally though. No other significant valvular dysfunction. Her pulmonary artery pressures were [address] Felix was consulted for Cardiology. He felt she had atypical atrial flutter with rapid ventricular rate which had resolved. Unaware of any previous arrhythmia, and she denied any palpitations. The patient was basically asymptomatic from that standpoint. Atypical chest pain was more pleuritic in nature. She has chronic venous insufficiency that is aggravated by stasis. The patient is status post venous stripping procedure. Blood pressures remained controlled. She was eating well. She has an infrarenal aortic aneurysm that we are aware of. We did a pulmonary angiogram on 02/01/2017 showing bilateral small pleural effusions, bibasilar atelectasis and severe atherosclerotic heart disease in the aorta and major branches, aneurysm dilatation noted near the diaphragmatic hiatus. The patient improved. She was eating. She tolerated physical therapy and was requesting to go home on 02/04/2017. I felt she could go home. She will resume home health. DISCHARGE MEDICATIONS: She will take her [place] as needed 7.5 q.6 hours. They started her on Eliquis 5 mg b.i.d. and aspirin 81 mg a day because of her CHADS score and chronic atrial fibrillation, Celexa 20 mg a day, Synthroid 100 mcg daily, Ativan 1 mg p.o. nightly at bedtime, Reglan 10 mg b.i.d., NicoDerm patch if needed, Protonix 40 mg a day, Desyrel 50 mg at bedtime. I will see her back in my office in a couple of weeks. cc: Jozef Simon MD
[2017-02-04 15:25] VITALS: BP 115/53
== END 2017-02-04 17:57 | disposition home health service (06) ==
LOC: ED 10:24 → ICU 12:36 → 4N 02-02 14:48
PROVIDERS: ADMIT Emergency Medicine; ATTEND Emergency Medicine